=== PATIENT | male | born 1995 | race Asian ===

== ENCOUNTER → 2017-04-04 | Outpatient (CLI) | payer OTHER ==
--- NOTE | 2017-04-04 13:38 | DIAGNOSTIC IMAGING REPORT ---
LEFT ANKLE 3 VIEWS HISTORY: Left ankle pain COMPARISON: None. FINDINGS: There is no fracture or dislocation. Mild soft tissue swelling. No radiopaque foreign bodies. IMPRESSION: No fractures. Electronically signed by: Artemio Stubbs M.D. 04/04/2017 1:36 PM Dictated Date/Time: 04/04/2017 1:34 PM
== END | disposition home or self-care (01) ==
LOC: C.RDSM 18:16
PROVIDERS: ATTEND Family Medicine
DX: M25.572 Pain in left ankle and joints of left foot (principal)

== ENCOUNTER → 2017-04-06 | Day surgery (SDC) | payer OTHER ==
[2017-04-05 08:05] VITALS: Ht 180.3 cm; Wt 90.9 kg
[~2017-04-06] VITALS: Ht 180.3 cm; Wt 90.9 kg
[~2017-04-06] MED LIST: ATROPINE SULFATE 0.1 MG/ML 5ML SYR IV PRN; BUPIVACAINE/EPINEPHRINE 0.5% MPF 1:200,000 30 ML VIAL ONE; CEFAZOLIN 2000MG IV PUSH 15 ML IV SCH; DEXAMETHASONE SOD INJ 4 MG/ML VIAL ONE; EpHEDrine SULFATE INJ 50 MG/ML AMP IV PRN; FENTANYL CITRATE INJ 50 MCG/1 ML 2 ML VIAL IV PRN; FENTANYL CITRATE INJ 50 MCG/1 ML 2 ML VIAL ONE; GLYCOPYRROLATE INJ 0.2 MG/ML VIAL ONE; LACTATED RINGER'S 1000ML 1,000 ML IV SCH; LIDOCAINE HCL 2% 2 ML VIAL (20MG/ML) ONE; LIDOCAINE MPF 1% INJ 30 ML SDV (L&D) INFIL ONE; MIDAZOLAM HCL 1 MG/ML 2ML VIAL ONE; MoRPHine SULFATE 2 MG/ML CARP IV PRN; MoRPHine SULFATE 4 MG/ML 1 ML CARP\\VIAL IV PRN; NEOSTIGMINE METHYLSULFATE 5 MG/5 ML SYR ONE; ONDANSETRON INJ 2 MG/ML 2 ML VIAL IV PRN; ONDANSETRON INJ 2 MG/ML 2 ML VIAL ONE; OXYCODONE/ACETAMINOPHEN 5-325 TAB PO PRN; PROPOFOL IV EMULSION 10 MG/ML 20 ML VIAL IV ONE; ROPIVACAINE 0.5% 5 MG/ML 30 ML VIAL ONE
--- NOTE | 2017-04-06 06:46 | History & Physical Bridge - SC ---
H&P Re-Evaluation Bridge Note: I have examined the patient, reviewed the History & Physical and in the interval since the performance of the History & Physical I have noted the following changes of clinical significance: No changes noted
--- NOTE | 2017-04-06 08:52 | Discharge Instructions-SurgCtr ---
Discharge Instructions Date of Service Apr 06, 2017. Visit Reason for Visit: Left Achilles Rupture Discharge Discharge Diagnosis / Problem: Status post Left Achilles repair Discharge Goals Goal(s): Decrease discomfort, Improve function, Increase independence Activity Recommendations Activity Limitations: per Instructions/Follow-up section May Resume Sexual Activity: when tolerated Shower/Bathe: may shower/bathe in 3 days Driving or Machine Use: Not while on Narcotics or in splint/boot Weightbearing Status: Left non-weightbearing Anesthesia . Post Anesthesia Instructions: If you have had General Anesthesia or IV Sedation: * Do not drive today. * Resume driving when surgeon permits. * Do not make important decisions or sign legal documents today. * Call surgeon for: 1. Temperature elevations greater than 101 degrees F. 2. Uncontrollable pain. 3. Excessive bleeding. 4. Persistent nausea and vomiting. 5. Medication intolerance (nausea, vomiting or rash). * For nausea and vomiting use only clear liquids such as: tea, soda, bouillon until nausea subsides, then gradually increase diet as tolerated. * If you have any concerns or questions, call your surgeon's office. If physician is unavailable and it is an emergency, call 911 or go to the nearest emergency room. . Instructions / Follow-Up Instructions / Follow-Up Dr. Messer in 10-15 days. PT in 4-5 days. 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 Call before going to make sure Wedges have arrived. Diet Recommendations Home Diet: resume previous diet Procedures Procedures Performed: Left Achilles Tendon Repair Pending Studies Studies pending at discharge: no School Instructions Return To School: time frame (within 1 week) Medical Emergencies . Who to Call and When: Medical Emergencies: If at any time you feel your situation is an emergency, please call 911 immediately. . Non-Emergent Contact Non-Emergency issues call your: Surgeon Call Non-Emergent contact if: temperature is above 101.5, your pain is not controlled, wound has increased drainage, wound has increased redness . . "Provider Documentation" section prepared by Rajiv Messer. .
--- NOTE | 2017-04-06 08:54 | [facility] Post Operative Brief Note ---
Immediate Operative Summary Operative Date Apr 06, 2017. Pre-Operative Diagnosis Left Achilles Tendon Tear Post-Operative Diagnosis Same Procedure(s) Performed Left Achilles Tendon Repair Surgeon Dr. Messer Specialty Department Supervisor Surgeon(s) Christiano Patten, Fellow Estimated Blood Loss 8 ml Findings Consistent with Post-Op Diagnosis Fluids (cc crystalloids) 1200 Specimens None Drains None Anesthesia Type General Complication(s) none Disposition Disposition: Recovery Room / PACU (Stable)
--- NOTE | 2017-04-06 08:55 | [facility] Operative Report ---
Operative Report Operative Date Apr 06, 2017. Pre-Operative Diagnosis Left Achilles Tendon Tear Post-Operative Diagnosis Same Procedure(s) Performed Left Achilles Tendon Repair Surgeon Dr. Messer Supply Cataloguer Surgeon(s) Christiano Patten, Fellow Estimated Blood Loss 8 ml Findings Complete rupture left Achilles tendon. Fluids (cc crystalloids) 1200 Specimens None Drains n/a Anesthesia Gen Complication(s) None Disposition Recovery Room / PACU (Stable) Implants #2 FiberWire (Arthrex) Indications The patient is a 21 year old male who sustained a Left Achilles tendon rupture . After a lengthy discussion with the patient regarding her treatment options of conservative versus surgical intervention, the patient has elected to proceed with surgical intervention. The patient understands the risks of surgery, which include but are not limited to: bleeding, infection, re-operation , damage to nerves and arteries, continued pain, decreased level of activity, and DVT. The patient understands all of these instructions and explanations, all of their questions have been satisfactorily addressed. The patient has elected to proceed with surgery and the informed consent was signed. Description of Procedure The patient was taken to the Operating Room and after general anesthetic was administered a multidisciplinary time-out was performed identifying my initials on the left limb as the correct and operative limb, the patient was placed in the prone position on the operating table. Prior to the incision being made, 2 grams of intravenous Ancef was given. The left lower leg was prepped and draped in the standard sterile fashion. The Achilles tendon and defect were palpated and marked. The planned incision approximately 8 cm in length was marked just medial to the Achilles tendon. The incision was injected with a 50:50 mixture of 1% Lidocaine plain and 0.5% Marcaine with Epinephrine for a total of 10 cc. The planned incision was created exposing the peritenon and defect. The peritenon was incised to expose the ruptured Achilles tendon approximately 3 cm from its insertion on the calcaneus. There was fraying of both ends. Any adhesions were release to allow mobilization of the tendons ends. The wound was copiously irrigated. The anterior peritenon was released exposing the FHL, to allow easier closure of the posterior peritenon over the repaired tendon later. Placement of #2 FiberWire in [place] fashion with 4 strands in both ends was performed. The inferior limbs were tied first followed by the superior limbs in the standard fashion. The inferior limbs were tied first followed by the superior limbs in the standard fashion. One strand from each of the medial knots were tied together, then using a free needle the knot was docked inferiorly and epi- tendinous stitch fashion a second strand from another not was also placed in a similar fashion through the other side and both were tied to inferior limbs of other knots. The sutures were cut short in the standard fashion, creating a stress free 6 strand repair. The foot was able to be flexed easily to neutral without tension or gapping of the repair. Sousa testing was now negative. The peritenon was closed sequentially with 0 Vicryl. The deep subcutaneous layer was closed with 2-0 Vicryl. The subcutaneous layer was closed with 3-0 Vicryl. The skin was closed with 3-0 Nylon. Xeroform was placed over top, followed by 4x4's, ABD, sterile cast padding, and posterior splint. The sponge and needle counts were correct. Post-op Instructions: Pain medicine prescription was given pre-operatively to be taken as needed. The patient will follow up with me in 10-15 days. The patient will remain NWB RLE for 2 weeks. The patient will start rehab in 2 days and will have the splint removed and replaced with a cam boot and heel lift. I attest to the content of the Intraoperative Record and any orders documented therein. Any exceptions are noted below.
[2017-04-06 10:32] VITALS: TEMP 37.2
--- NOTE | 2017-04-06 10:41 | Anesthesia Progress Nt - [facility] ---
Anesthesia Post Op Note Date & Time Apr 06, 2017 at 10:41 Vital Signs Pain Intensity: 0 Vital Signs Past 12 Hours Date Time Temp Pulse Resp B/P (MAP) Pulse Ox O2 Delivery O2 Flow Rate FiO2 04/06/17 10:23 36.9 70 16 142/91 95 Room Air 04/06/17 10:21 67 3 04/06/17 10:21 67 3 96 04/06/17 10:20 142/91 04/06/17 10:16 74 12 04/06/17 10:16 76 12 97 04/06/17 10:15 135/87 04/06/17 10:11 66 15 04/06/17 10:11 66 15 100 04/06/17 10:10 135/89 04/06/17 10:06 68 16 04/06/17 10:06 69 16 100 04/06/17 10:05 136/92 04/06/17 10:01 66 13 100 04/06/17 10:01 66 13 04/06/17 10:00 134/90 04/06/17 09:56 69 16 100 04/06/17 09:56 68 16 04/06/17 09:55 133/84 04/06/17 09:51 69 16 04/06/17 09:51 69 16 100 04/06/17 09:50 135/84 04/06/17 09:46 78 13 04/06/17 09:46 77 13 100 04/06/17 09:45 137/80 04/06/17 09:41 70 16 04/06/17 09:41 70 16 100 04/06/17 09:40 138/81 04/06/17 09:36 71 14 99 04/06/17 09:36 71 14 04/06/17 09:35 132/80 04/06/17 09:31 75 16 04/06/17 09:31 75 16 96 04/06/17 09:30 132/77 04/06/17 09:26 77 17 04/06/17 09:26 77 17 99 04/06/17 09:25 131/78 04/06/17 09:22 139/77 04/06/17 09:21 37.6 91 18 139/77 96 Mask 6 04/06/17 06:38 37.0 65 16 119/66 (83) 97 Room Air Notes Mental Status: alert / awake / arousable, participated in evaluation Pt Amnestic to Procedure: Yes Nausea / Vomiting: adequately controlled Pain: adequately controlled Airway Patency, RR, SpO2: stable & adequate BP & HR: stable & adequate Hydration State: stable & adequate Anesthetic Complications: no major complications apparent
[2017-04-06 11:28] VITALS: BP 129/76; PULSE 74; O2SAT 96
== END | disposition home or self-care (01) ==
LOC: X.SURG 06:04
PROVIDERS: ATTEND Orthopaedic Surgery Sports Medicine
DX: S86.012A Strain of left Achilles tendon, initial encounter (principal); E66.9 Obesity, unspecified; Z82.49 Family history of ischemic heart disease and other diseases of the circulatory system; F17.200 Nicotine dependence, unspecified, uncomplicated; X58.XXXA Exposure to other specified factors, initial encounter